=== PATIENT | female | born 1990 | race Caucasian/White ===

== ENCOUNTER 2022-06-25 17:15 | Outpatient (REF) | payer MEDICAID, SELFPAY ==
[2022-06-25 21:06] LABS: COMMENT (LAB VIEW ONLY) 18.84 mg/dL; Microalb ug/mg Crea 15.9 ug/mg Cr
[2022-06-26 09:06] LABS: Bacteria Few HPF (Negative); C & S Indicated? C&S Done As Ordered; Casts Negative LPF (Negative); Crystals Negative HPF (Negative); Epithelial Cells Few HPF (Negative); Mucus Negative (Negative); RBC 0-2 HPF (0-2)
== END 2022-06-25 17:16 | disposition home or self-care (01) ==
LOC: NCHCN 17:15
PROVIDERS: PCP Nurse Practitioner Family; Visit Provider Nurse Practitioner Family
DX: R39.89 Other symptoms and signs involving the genitourinary system (principal)
CPT/HCPCS: 87077; 81015; 82043; 82570; 87086; 87186

== ENCOUNTER 2022-08-02 14:55 | Outpatient (REF) | payer MEDICAID, SELFPAY | END 2022-08-02 14:56 | disposition home or self-care (01) | LOC: NCHCN 14:55 | PROVIDERS: PCP Nurse Practitioner Family; Visit Provider Nurse Practitioner Family | DX: R30.0 Dysuria (principal) | CPT/HCPCS: 87077; 87086; 87186 ==

== ENCOUNTER 2025-05-24 13:41 | Outpatient (REF) | payer MEDICAID, SELFPAY ==
--- NOTE | 2025-05-24 11:30 | PAPFT_PTH ---
PATIENT: Trish Schaefer LOC: [facility]#:[id number] AGE/SX: 34/F ROOM: RE05/24/[address]: Sara Benton : 1990 BED: DIS: 05/24/2025 SPEC #: [id number] RECD: 05/24/25 18:28 STATUS: JULIETH NAVA #: [id number] TIFFANY: 05/24/25 11:[address]: Sara Stoll DEPT: [facility] Cytology RECD BY: Leigh Ann Duenas Tissues: 1 - CX/ENDOCX FOR PAP SMEARS Procedures: PAP THIN PREP/[facility] Screening HPV DNA PROBE Comments: [id number] (HPV 16 & 18/45)
[2025-05-24 15:20] LABS: HCT 43.3 % (36.0-46.0); HGB 14.4 g/dL (11.2-15.7); MCH 28.2 pg (27.0-33.0); MCHC 33.3 % (32.0-36.0); MCV 85 fL (80-95); MPV 10.6 fL (8.0-11.0); Platelet Count 258 10^3/uL (130-400); RBC 5.10 10^6/uL (3.93-5.22); RDW 13.0 % (11.7-14.6); RDW-SD 40.3 fL; WBC 7.53 10^3/uL (4.4-10.8)
[2025-05-24 15:40] LABS: Hemoglobin A1C 5.6 % (<5.7)
[2025-05-24 15:51] LABS: ALT 27 U/L (14-59); AST 21 U/L (15-37); Albumin 3.5 g/dL (3.4-5.0); Alkaline Phosphatase 72 U/L (46-116); Anion Gap 9.6 mmol/L (3-11); BUN 14 mg/dL (7-18); Bilirubin, Total 0.6 mg/dL (0.2-1.0); CO2 25.4 mmol/L (21.0-32.0); Calcium 8.9 mg/dL (8.5-10.1); Chloride 107 mmol/L (98-107); Cholesterol 142 mg/dL (<200); Glucose 89 mg/dL (74-106); HDL Cholesterol 45 mg/dL (>or=50); Potassium 3.9 mmol/L (3.5-5.1); Sodium 142 mmol/L (136-145); TSH 0.46 uIU/mL (0.36-3.74); Total Protein 8.2 g/dL (6.4-8.2)
== END 2025-05-24 13:42 | disposition home or self-care (01) ==
LOC: NCHCN 13:41
PROVIDERS: PCP Nurse Practitioner Family; Visit Provider Nurse Practitioner Family
DX: Z13.220 Encounter for screening for lipoid disorders (principal); Z13.228 Encounter for screening for other metabolic disorders; Z13.0 Encounter for screening for diseases of the blood and blood-forming organs and certain disorders involving the immune mechanism; Z13.1 Encounter for screening for diabetes mellitus; Z13.29 Encounter for screening for other suspected endocrine disorder
CPT/HCPCS: 80053; 80061; 85027; 88142; 83036; 84443; 87624